=== PATIENT | male | born 1990 | race Caucasian/White ===

== ENCOUNTER 2021-01-27 19:04 | Emergency (ER) | payer OTHER ==
[2021-01-27] MEDS ORDERED: AUGMENTIN 500-1 EACH PO (21:16)
[2021-01-27] MEDS ORDERED: MEDROL 4MG DOSEP4 MG PO (21:16)
[2021-01-27] MEDS ORDERED: VENTOLIN HFA IN18 GM INH (21:16)
== END 2021-01-27 21:46 | disposition home or self-care (01) ==
LOC: FER 19:04
DX: B34.9 Viral infection, unspecified (principal); F17.210 Nicotine dependence, cigarettes, uncomplicated; Z20.822 Contact with and (suspected) exposure to COVID-19
CPT/HCPCS: 99283; U0002